=== PATIENT | male | born 1960 | race Caucasian/White ===

== ENCOUNTER 2021-06-07 13:38 | Outpatient (CLI) | payer MEDICAID | END 2021-06-07 20:08 | disposition home or self-care (01) | LOC: MRD 13:38 → EDBD 13:38 → MRD 20:08 | PROVIDERS: ATTEND Otolaryngology | DX: R13.10 Dysphagia, unspecified (principal); J90 Pleural effusion, not elsewhere classified | CPT/HCPCS: 74220 ==